=== PATIENT | male | born 1985 | race Caucasian/White ===

== ENCOUNTER 2020-12-26 05:22 | Emergency (ER) | payer SELFPAY ==
[2020-12-26 05:24] VITALS: BP 125/65; PULSE 69; RESP 14; TEMP 36.4; O2SAT 100; BMI 18.8
--- NOTE | 2020-12-26 05:49 | XR_ITS ---
PROCEDURE INFORMATION: Exam: XR Right Ribs with PA Chest Exam date and time: 12/26/2020 5:49 AM Age: 35 years old Clinical indication: Injury or trauma; Fall; Rib area; Blunt trauma (contusions or hematomas); Injury date: 12/23/2020; Additional info: Pain fell landed on RT ribs TECHNIQUE: Imaging protocol: XR Right ribs with PA chest. Views: 3 views COMPARISON: CR XR CHEST 2V 12/26/2020 5:56 AM FINDINGS: Lungs: Unremarkable. No consolidation. Pleural spaces: Unremarkable. No pleural effusion. No pneumothorax. Heart/Mediastinum: Unremarkable. No cardiomegaly. Bones/joints: Unremarkable. IMPRESSION: No acute findings.
--- NOTE | 2020-12-26 05:49 | XR_ITS ---
PROCEDURE INFORMATION: Exam: XR Chest Exam date and time: 12/26/2020 5:49 AM Age: 35 years old Clinical indication: Injury or trauma; Fall; Blunt trauma (contusions or hematomas); Injury date: 12/23/2020; Additional info: Pain fell landed on RT anterior ribs TECHNIQUE: Imaging protocol: XR of the chest. Views: 2 views. COMPARISON: No relevant prior studies available. FINDINGS: Lungs: Unremarkable. No consolidation. Pleural spaces: Unremarkable. No pleural effusion. No pneumothorax. Heart/Mediastinum: Unremarkable. No cardiomegaly. Bones/joints: Unremarkable. IMPRESSION: No acute findings.
--- NOTE | 2020-12-26 06:31 | HMH.EDGENADL ---
ED Disposition Clinical Impression: Contusion, chest wall Qualifiers: Encounter type: initial encounter Laterality: right Qualified Code(s): S20.211A - Contusion of right front wall of thorax, initial encounter Disposition: Home, Self-Care Condition on Discharge: Good Instructions: DI for Atypical Chest Pain Additional Instructions: advil /tyenol and see pcp for follow up Referrals: Provider,Referral, MD [Primary Care Provider] - - Critical Care Critical Care Time: No Attestation: On 12/26/20, the high probability of a clinically significant, sudden or life threatening deterioration of the following system(s) required my full and direct attention, intervention and personal management. The time I documented below is in addition to time spent performing reported procedures but includes the following listed in this critical care notation. Medical Decision Making - Medical Records Medical records reviewed: Yes: I reviewed the patient's medical records. - Syed Inquiry Pt receiving controlled substance: No Vital Signs: 12/26/20 05:24 Temperature 97.6 F Temperature Source Oral Pulse Rate [Left] 69 Respiratory Rate 14 Blood Pressure [Right Arm] 125/65 Blood Pressure Mean [Right Arm] 85 02 Sat by Pulse Oximetry 100 Oxygen Delivery Method Room Air - Lab Data Lab results reviewed: Yes: I reviewed the patient's lab results. Orders (Tests/Meds): ORDERS Category Date Time Status XR chest 2V Stat Exams 12/26/20 05:49 Taken XR ribs RT min 3V w CXR1V Stat Exams 12/26/20 05:49 Taken - Radiology Data #1 Image(s): Chest, Other (ribs ) Image Reviewed: Yes I have reviewed radiologist's interpretation Preliminary Findings: No Fracture Seen Medical Decision Narrative: no def fx seen or pxt General Adult HPI - General Chief complaint: PAIN Stated complaint: ? Pulled Muscle Time Seen by Provider: 12/26/20 05:30 Mode of Arrival: Family Vehicle Source of Information: Patient, Medical Record Limitations: No Limitations Description of Symptoms (Recalled from ER Triage Doc. by RN): pt complains of right rib pain after an almost fall yesterday while carrying a michelle and losing balance - History of Present Illness HPI narrative: acute rt sided ant chest and rib pain as walking and carring michelle and slipped - now with rt sided pain Onset (ago): day(s) Location: chest Severity: moderate Associated symptoms: denies other symptoms Treatments prior to arrival: none - Related Data Home Medications Medication Instructions Recorded Confirmed No Known Home Medications 12/26/20 12/26/20 Allergies Allergy/AdvReac Type Severity Reaction Status Date / Time No Known Allergies Allergy Verified 12/26/20 05:39 [facility] History - Hepatitis A Screen Drug use history?: No High risk sexual behaviors?: No History of sexually transmitted infection?: No Currently employed?: No Childcare worker?: No Do you have indoor plumbing?: Yes Do you have electricity?: Yes Attestation statement:: This patient has been screened for Hepatitis A risk factors. I have reviewed the patient's past medical history: Yes ROS Obtained: Yes All systems reviewed & no additional complaints - Constitutional Constitutional: Denies fever(s) - Eyes Eyes: Denies change in vision - ENT Ears, Nose, Mouth, and Throat: Denies sore throat - Cardiovascular Cardiovascular: Reports as per HPI, Reports chest pain - Respiratory Respiratory: Denies shortness of breath - Gastrointestinal Gastrointestingal: Denies: abdominal pain - Genitourinary Male Genitourinary: Denies flank pain, Denies hematuria - Musculoskeletal Musculoskeletal: Denies joint pain - Integumentary/Breasts Skin/Breast: Denies rash - Neurologic Neurologic: Denies focal weakness, Denies seizure-like activity Physical Exam - General General appearance: alert - Head Head exam: normocephalic - Eye Eye exam: Present: PERRL, EO
[2020-12-26 06:50] VITALS: BP 120/57; PULSE 56; O2SAT 100
[2020-12-26 06:54] VITALS: BP 120/57; PULSE 70; RESP 14; TEMP 36.5; O2SAT 100
== END 2020-12-26 07:02 | disposition home or self-care (01) ==
PROVIDERS: Emergency Provider Emergency Medicine
DX: S20.20XA Contusion of thorax, unspecified, initial encounter (principal); X50.9XXA Other and unspecified overexertion or strenuous movements or postures, initial encounter
CPT/HCPCS: 71046; 71101; 99282

== ENCOUNTER 2021-06-30 16:35 | Emergency (ER) | payer SELFPAY ==
[2021-06-30 16:37] VITALS: BP 139/73; PULSE 89; RESP 16; TEMP 36.6; O2SAT 98; BMI 18.0
[2021-06-30 16:51] LABS: Microscopic, Urine URINE MICROSCOPIC (MICROSCOPIC)
[2021-06-30 16:57] LABS: Appearance,Urine CLEAR (Clear); Bilirubin,Urine Negative (Negative); Blood, Urine Negative (Negative); Color,Urine YELLOW (Yellow); Glucose,Urine (UA) Negative (Negative); Ketones,Urine Negative (Negative); Leukocyte Esterase,Urine TRACE (Negative); Nitrate,Urine Negative (Negative); PH,Urine 6.5 (5.0-8.5); Protein,Urine Negative (Negative); Specific Gravity, Urine 1.025 (1.005-1.030); Urobilinogen,Urine 0.2 EU/dl (0.2)
--- NOTE | 2021-06-30 17:08 | PC.NURSE ---
PT UPSET IF YOU CAN'T BREAK IT UP HERE THEN I'M GOING TO [place] . PT LEFT DEPT WITH
--- NOTE | 2021-06-30 17:19 | HMH.EDGENADL ---
ED Disposition Clinical Impression: Kidney stone on right side Disposition: Left Against Medical Advice Condition on Discharge: Undetermined Instructions: Kidney Stones -- Adult Referrals: Provider,Referral, [Primary Care Provider] - - Critical Care Critical Care Time: No Attestation: On 06/30/21, the high probability of a clinically significant, sudden or life threatening deterioration of the following system(s) required my full and direct attention, intervention and personal management. The time I documented below is in addition to time spent performing reported procedures but includes the following listed in this critical care notation. Medical Decision Making - Medical Records Medical records reviewed: Yes: I reviewed the patient's medical records. - Syed Inquiry Pt receiving controlled substance: No Vital Signs: 06/30/21 16:37 Temperature 98 F Temperature Source Oral Pulse Rate [Radial] 89 Respiratory Rate 16 Blood Pressure [Right Arm] 139/73 Blood Pressure Mean [Right Arm] 95 Blood Pressure Position [Right Arm] Sitting 02 Sat by Pulse Oximetry 98 Oxygen Delivery Method Room Air - Lab Data Lab Results 06/30/21 16:40: Urine Color Yellow, Urine Appearance Clear, Urine pH 6.5, Ur Specific Rousseau 1.025, Urine Protein Negative, Urine Glucose (UA) Negative, Urine Ketones Negative, Urine Blood Negative, Urine Nitrate Negative, Urine Bilirubin Negative, Urine Urobilinogen 0.2, Ur Leukocyte Esterase Trace Orders (Tests/Meds): ORDERS Category Date Time Status Complete Blood Count Auto Diff Stat Lab 06/30/21 16:49 Ordered Comprehensive Metabolic Panel Stat Lab 06/30/21 16:49 Ordered Urinalysis and Microscopic Stat Lab 06/30/21 16:40 Results Medical Decision Narrative: 35-year-old male presented to the emergency department with flank pain. Patient was apparently at [facility]. We did receive his records any at 8 mm obstructing stone. Patient failed to follow-up with urology. States that he wants a stone at this point. I did explain to the patient I do not have currently urology available at this time. Patient became very upset. He states that he wants this procedure done right now. I did explain to the patient that we will start work-up and transfer him if needed. Patient got out of bed and walked out of the emergency department at this point. He left without completing any medical treatment. General Adult HPI - General Chief complaint: PAIN Stated complaint: possible kidney stone Time Seen by Provider: 06/30/21 16:40 Mode of Arrival: Ambulatory Limitations: No Limitations Description of Symptoms (Recalled from ER Triage Doc. by RN): TO ED PER [employer] CAR WITH C/O RT SIDE FLANK AND RT SIDE ABD PAIN STARTING YESTERDAY PT STATES SEEN IN [facility] AND DX WITH 8MM KIDNEY STONE AND TOLD TO GO TO [place] TO SEE UROLOGY. PT STATES HE WAS UNABLE TO GO TO [place] DUE TO FAMILY MATTERS. PT STATES HE IS HERE TO HAVE HIS KIDNEY STONE BROKEN UP . - History of Present Illness HPI narrative: 35-year-old male presented to the emergency department with some right-sided flank pain. Patient states that he was at [facility] yesterday diagnosed with a 8 mm obstructing kidney stone. They did recommend transfer to [place] at the time, however patient declined. He was instructed to follow-up with urology , However the patient did not do this. He presents today because he wants the kidney stone removed. Planing some pain in the right side. Dull in nature. Radiates into the groin. Denies any dysuria or hematuria. No fevers or chills. Headache or change in vision. No focal weakness. No vomiting or diarrhea. - Related Data Home Medications Medication Instructions Recorded Confirmed No Known Home Medications 12/26/20 12/26/20 Allergies Allergy/AdvReac Type Severity Reaction Status Date / Time No Known Allergies Allergy Verified 12/26/20 05:39 [facility]
[2021-06-30 17:24] LABS: Bacteria,Urine Trace /lpf
[2021-06-30 17:42] VITALS: BP 0/0; PULSE 0; RESP 0; TEMP -17.7; TEMP 0; O2SAT 0
== END 2021-06-30 17:43 | disposition left against medical advice (07) ==
PROVIDERS: Emergency Provider Emergency Medicine
DX: N20.0 Calculus of kidney (principal)
CPT/HCPCS: 81001; 87086; 99282

== ENCOUNTER 2022-03-13 09:47 | Emergency (ER) | payer OTHER, SELFPAY ==
[2022-03-13 10:50] VITALS: BP 104/54; PULSE 81; RESP 18; TEMP 36.6; O2SAT 98; BMI 21.2
--- NOTE | 2022-03-13 10:54 | EXP.UTC ---
Discharge Plan Prescriptions Prescriptions: No Action No Known Home Medications Referrals Follow up/Referrals: Provider,Referral, [Primary Care Provider] - See instructions Discharge ED Provider: Artemio Alamo [facility] [place] General Stated complaint: LT side rib pain Mode of Arrival: Ambulatory Source of Information: Patient Limitations: No Limitations Time Seen by Provider: 03/13/22 10:54 Description of Symptoms (Recalled from Triage Doc. by RN): pt comes in with left side pain in rib and stomach. symptoms began 03/10. HEENT Symptoms (Recalled from RN notes): No Resp Symptoms (Recalled from RN notes): No Skin Symptoms (Recalled from RN notes): No MS Symptoms (Recalled from RN notes): No Functional Status (Recalled from RN notes): n/a History of Present Illness Provider Complaint: Patient state that he woke up a couple days ago having pain in his left rib area that is worse with movement States that he has pain in left lower ribs that radiates around his left lower ribs/stomach area States that when he raises his left arm he feels like a muscle is pulling States that today he was still having pain and was unable to go to work Denies known injury but has been coughing alot Related Data Home Medications Medication Instructions Recorded Confirmed No Known Home Medications 12/26/20 12/26/20 Allergies Allergy/AdvReac Type Severity Reaction Status Date / Time No Known Allergies Allergy Verified 12/26/20 05:39 Worker's Comp Is this a Worker's Comp case?: No [facility] Disclaimer: The information contained in this section may have been updated after the patient was seen, as this information can be updated by other users. Social History Smoking Status: Unknown if ever smoked alcohol intake: never current occupational status: employed Travel in the last 8 weeks: None ROS Obtained: Yes All systems reviewed & no additional complaints except as documented and Yes Systems reviewed as appropriate & no additional complaints except as documented Constitutional Constitutional: Reports system reviewed and no additional complaints, except as documented and Reports as per HPI ENT Ears, Nose, Mouth, and Throat: Reports system reviewed and no additional complaints, except as documented and Reports as per HPI Cardiovascular Cardiovascular: Reports system reviewed and no additional complaints, except as documented, Reports as per HPI, Denies chest pain and Reports other (Pain in left lower ribs that moves around side with movement or cough ) Comments: Denies injury Respiratory Respiratory: Reports system reviewed and no additional complaints, except as documented, Reports as per HPI and Reports cough Gastrointestinal Gastrointestingal: Reports system reviewed and no additional complaints, except as documented and other (pain left lower rib/stomach area) Musculoskeletal Musculoskeletal: Reports system reviewed and no additional complaints, except as documented and Reports as per HPI Physical Exam General General appearance: alert and in no apparent distress ENT ENT exam: Present mucous membranes moist Expanded Chest Exam Breast: left: tenderness Male Torso: 1. reports tenderness and pain with movement no bruising no swelling 2. reports tenderness and pain with movement denies injury reports feeling grating like feeling when coughing and pulling sensation when he raises his left arm Respiratory Respiratory exam: Present normal lung sounds bilaterally; Absent respiratory distress or wheezes Cardiovascular Cardiovascular exam: Present regular rate, normal rhythm and normal heart sounds Abdominal Exam Abdominal exam: Present soft and normal bowel sounds; Absent distention or tenderness Neurological Exam Neurological exam: Present alert, oriented X3 and normal gait Medical Decision Making Syed Inquiry Pt receiving controlled substance: No Syed was queried for this patient: No Vital Signs: 03/13/22
--- NOTE | 2022-03-13 10:56 | XR_ITS ---
FINAL REPORT CLINICAL HISTORY: pain in left ribs, coughing felt grinding COMPARISON: 12/26/2020 FINDINGS: A single view of the chest with 3 views of the ribs were obtained. There is no acute cardiopulmonary process. No pneumothorax is identified. No displaced rib fracture identified. IMPRESSION: No acute process. Reviewed, Interpreted and Dictated by Roman Corona III, MD Transcribed by Rere Johnston Authenticated and [facility]
[2022-03-13 11:02] LABS: Apearance,Urine Clear (Clear); Bilirubin,Urine Negative (Negative); Blood, Urine Negative (Negative); Color,Urine Yellow (Yellow); Glucose,Urine (UA) Negative (Negative); Ketones,Urine Negative (Negative); PH,Urine 7.5 (5.0-8.5); Protein,Urine Negative (Negative); Specific Gravity, Urine 1.015 (1.005-1.030); UTC Leukocyte Esterase,Urine Negative (Negative); UTC Nitrate,Urine Negative (Negative); Urobilinogen,Urine 0.2 EU/dl (0.2)
[2022-03-13 11:27] VITALS: BP 104/54; PULSE 81; RESP 18; TEMP 36.6
== END 2022-03-13 11:31 | disposition home or self-care (01) ==
PROVIDERS: Emergency Provider Nurse Practitioner Family
DX: R07.81 Pleurodynia (principal)
CPT/HCPCS: 71101; 81003; 99212; G0463